=== PATIENT | female | born 1935 | race Caucasian/White ===

== ENCOUNTER → 2016-12-07 | Day surgery (SDC) | payer MEDICARE ==
[~2016-12-07] MED LIST: BACITRACIN TOP OINT 15 GM TUBE ONE; BUPIVACAINE/EPINEPHRINE 0.25% PF 30 ML VIAL ONE; HYDR12.57 PO; LACTATED RINGER'S 1000 ML INJ 1,000 ML ONE; NALO1TAB2 PO; ONDANSETRON HCL 4 MG/2 ML VIAL IV PUSH ONE; PERC10TA27 PO; PROPOFOL 200 MG/20 ML AMP IV ONE; SENN1TAB PO; SODIUM CHLOR 0.9% 250 ML BAG IV ONE; VANCOMYCIN HCL 1000 MG VIAL ONE
--- NOTE | 2016-12-12 17:05 | TN ---
cc: KRYSTLE BYNUM DATE OF SURGERY 12/07/2016 PREOPERATIVE DIAGNOSIS Right lower extremity thin melanoma. POSTOPERATIVE DIAGNOSIS Right lower extremity thin melanoma. PROCEDURE Wide excision of right lower extremity melanoma with closure of wound 3 cm x 7 cm. ANESTHESIA General. ATTENDING SURGEON Dr. Bynum. [employer] None. BLOOD LOSS Less than 10 cc. COMPLICATIONS None. FINDINGS No residual pigmentation previous melanoma biopsy site right anterior leg. moderate amount of tension with closure requiring extensive skin flap development. 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 A discussion with the patient about the management why excision was recommended. I was concerned about the melanoma location at the anterior tibia that this would possibly need a skin graft. The patient wished to undergo attempt at primary closure despite the risk of tension and breakdown to avoid possible skin graft, skin graft failure or wound care. The risks, benefits and alternatives to the wide excision and all possible closure techniques were discussed with the patient in detail prior to the procedure. The patient agreed to undergo the procedure. After informed consent was obtained the patient was taken to the operating room, placed in supine position. The patient underwent general anesthesia. The patient's right leg was prepped and draped in sterile fashion. Time-out was performed. Local anesthetic was instilled throughout the planned excision site. The area was marked with a 1 cm margin around the previous biopsy site 360 degrees. This was drawn out to an elliptical type incision and to facilitate closure. The patient preoperatively did wish to have attempt at primary closure and did not want a skin graft performed. We did excise this with a 15 blade scalpel followed by Bovie electrocautery down to the anterior tibial fascia. This was oriented with a stitch superior and passed off for permanent section. We then at this point time turned our attention towards closure. It was too tight to close primarily, however, we did use Bovie electrocautery to make extensive skin flaps up to 3 cm or more superiorly, inferiorly and laterally throughout the wound. With this we also did excise some skin at the superior and inferior portion of the wound and this was able to close with moderate of tension. We did use some 2-0 nylon sutures in vertical mattress fashion to close starting from the edges working towards the middle, holding closure of the tension on the skin. We had the skin completely closed at the end of the incision with a moderate amount of tension with the skin was still viable and technically adequate for closure. At this point in time we then were able to place antibacterial ointment and a dressing and leg wrap over the wound. This patient was at this point in time discontinued from the anesthesia, taken to the PACU in stable condition. The patient tolerated the procedure well. No apparent complications. All counts were correct. I was present and scrubbed for the entire procedure. Krystle Bynum MD AWG/KK /4:02 PM /4:46 PM [email or web address]
== END | disposition home or self-care (01) ==
LOC: ESDC 09:16
PROVIDERS: ATTEND Surgery
DX: C43.71 Malignant melanoma of right lower limb, including hip (principal)
CPT/HCPCS: 00400; 14021; 88305; J2405; J3010; J3370; J7050; J7120